=== PATIENT | male | born 1945 | race Caucasian/White ===

== ENCOUNTER → 2018-12-21 19:03 | Outpatient (REF) | payer MEDICARE, SELFPAY ==
[2018-12-27 15:36] LABS: Testosterone Free 39.9 pg/mL (30.0-135.0); Testosterone Total 252 ng/dL (250-1100)
== END ==
LOC: LAB 19:03
PROVIDERS: Visit Provider Family Medicine Geriatric Medicine
DX: E29.1 Testicular hypofunction (principal)
CPT/HCPCS: 36415; 84402; 84403

== ENCOUNTER 2022-08-26 10:04 | Emergency (ER) | payer MEDICARE, SELFPAY ==
[2022-08-26 10:16] VITALS: BP 128/85; PULSE 50; RESP 14; O2SAT 98
[2022-08-26 10:18] VITALS: PULSE 48; O2SAT 100
--- NOTE | 2022-08-26 10:20 | DI.US.S_ITS ---
PROCEDURE: US PERIPH VENOUS LOW EXTREM LT INDICATIONS: SWELLING/DISCOMFORT TECHNIQUE: Real-time imaging, as well as color and pulse Doppler interrogation, were performed of the lower extremity deep veins from the inguinal ligament to the popliteal fossa. COMPARISON: None. FINDINGS: The common femoral, femoral and popliteal veins are normally compressible, and free of intraluminal thrombus. Color and pulse Doppler demonstrate normal phasic intraluminal flow. There is normal augmentation response to distal compression maneuver. There is a partially clotted varicosity superficial at the medial/proximal calf, just distal to the knee. IMPRESSION: 1. No evidence of DVT, left lower extremity. 2. Superficial thrombophlebitis. Dictated by: Kal Ross M.D. on 08/26/2022 at 11:30 Approved by: Kal Ross M.D. on 08/26/2022 at 11:32
--- NOTE | 2022-08-26 10:29 | ED_ITS ---
HPI - Extremity Problem General Chief complaint: Extremity Problem,Nontraumatic Stated complaint: possible blood clot on leg Time Seen by Provider: 08/26/22 10:19 Source: patient and family Mode of arrival: Ambulatory History of Present Illness HPI Narrative: 77-year-old male who at the end of last week was seen at an outside emergency department for fevers and urinary incontinence. He went back a couple days later and was diagnosed with cellulitis to his left lower extremity. He is placed on antibiotics. He was seen yesterday for the same symptoms. There was concern about a blood clot. This facility did not have ultrasound. He was discharged home and told to follow-up at another hospital for the ultrasound. Patient states that his fever has improved and the redness and the swelling has improved as well. Related Data Allergies Allergy/AdvReac Type Severity Reaction Status Date / Time No Known Drug Allergies Allergy Verified 08/26/22 10:19 Review of Systems Constitutional Constitutional: Reports system reviewed and no additional complaints, except as documented Gastrointestinal Gastrointestinal: Reports system reviewed and no additional complaints, except as documented Genitourinary Genitourinary: Reports system reviewed and no additional complaints, except as documented Integumentary/Breasts Skin/Breast: Reports system reviewed and no additional complaints, except as documented Neurologic Neurologic: Reports system reviewed and no additional complaints, except as d ocumented Patient History Social History Smoking Status: Never smoker Smoking Status: Never smoker alcohol intake frequency: 0-2 drinks per day Substance Use Type: does not use Exam Initial Vital Signs Initial Vital Signs: Vital Signs Pulse Rate 50 L 08/26/22 10:16 Respiratory Rate 14 08/26/22 10:16 Blood Pressure 128/85 08/26/22 10:16 Pulse Oximetry 98 08/26/22 10:16 Oxygen Delivery Method 08/26/22 10:16 HENMT Head: normal to inspection and normocephalic Cardio Pulses: dorsalis pedis present on the left Skin Other: Patient with redness and warmth to the medial aspect of the left calf. There is also a small area to the medial aspect of the left knee. There is a skin marker on the skin that was dated for yesterday and the redness as well inside this markings. Extrem Other: Skin changes and discomfort to the left calf. Course Orders Ordered: ED Orders 12/06/22 10:20 US periph venous low extrem lt Stat Vital Signs Vital signs: Vital Signs - 8 hr 08/26/22 10:16 08/26/22 10:18 08/26/22 10:30 Pulse Rate 50 L 48 L Respiratory Rate 14 Blood Pressure 128/85 119/61 Pulse Oximetry 98 100 Oxygen Delivery Method Room Air 08/26/22 10:30 08/26/22 11:00 08/26/22 11:00 Pulse Rate 45 L 48 L Respiratory Rate Blood Pressure 120/59 L Pulse Oximetry 100 99 Oxygen Delivery Method 08/26/22 11:30 08/26/22 11:30 Pulse Rate 44 L Respiratory Rate Blood Pressure 123/63 Pulse Oximetry 99 Oxygen Delivery Method MDM - Extremity (Nontraumatic) MDM Narrative Medical decision making narrative: The cellulitis is improving per the patient. It is well within the markings that were made yesterday at the outside emergency department. The ultrasound today shows no signs of DVT. He does have a nonocclusive superficial thrombosis. I did discuss this with the patient. No indication to change any of his medications. He was given care instructions and return precautions. He expressed understanding and agreement. Discharge Plan Departure Patient Disposition: Home Clinical Impression: Cellulitis Instructions: DI for Cellulitis -- Adult Activity Restrictions/Additional Instructions: I do recommend that you continue all of the antibiotics as directed and contact your primary doctor for follow-up. Continue the rest of your medications as directed. Return to the emergency department for any new or worsening symptoms.
[2022-08-26 10:30] VITALS: BP 119/61; PULSE 45; O2SAT 100
[2022-08-26 11:00] VITALS: BP 120/59; PULSE 48; O2SAT 99
[2022-08-26 11:30] VITALS: BP 123/63; PULSE 44; O2SAT 99
== END 2022-08-26 12:03 | disposition home or self-care (01) ==
PROVIDERS: Emergency Provider Emergency Medicine
DX: L03.116 Cellulitis of left lower limb (principal)
CPT/HCPCS: 93971; 99281; 99283